=== PATIENT | female | born 1945 | race Caucasian/White ===

== ENCOUNTER 2019-09-23 16:19 | Emergency (ER) | payer BC, MEDICARE ==
[2019-09-23] MEDS ORDERED: Adacel (T-DAP) 0.5 ML SYRINGE ONE (16:51)
== END 2019-09-23 17:07 | disposition home or self-care (01) ==
LOC: ERS 16:19
DX: S61.432A Puncture wound without foreign body of left hand, initial encounter (principal); I10 Essential (primary) hypertension; E78.00 Pure hypercholesterolemia, unspecified; W45.8XXA Other foreign body or object entering through skin, initial encounter
CPT/HCPCS: 90471; 90715

== ENCOUNTER 2020-08-25 08:53 | Outpatient (CLI) | payer MEDICARE, OTHER ==
[2020-08-25] MEDS ORDERED: Magnevist 469MG/ML 20 ML VIAL ONE (11:49)
== END 2020-08-25 08:54 | disposition home or self-care (01) ==
LOC: BICMRI 08:53
PROVIDERS: ATTEND Internal Medicine
DX: R79.89 Other specified abnormal findings of blood chemistry (principal); K86.2 Cyst of pancreas; D35.02 Benign neoplasm of left adrenal gland; N28.1 Cyst of kidney, acquired; K57.10 Diverticulosis of small intestine without perforation or abscess without bleeding; K86.89 Other specified diseases of pancreas
CPT/HCPCS: 74183; 82565; A9579

== ENCOUNTER 2022-10-01 13:06 | Outpatient (CLI) | payer MEDICARE, OTHER | END 2022-10-01 13:07 | disposition home or self-care (01) | LOC: BICMAMMO 13:06 | PROVIDERS: ATTEND Family Medicine | DX: Z12.31 Encounter for screening mammogram for malignant neoplasm of breast (principal) | CPT/HCPCS: 77063; 77067 ==

== ENCOUNTER 2023-01-14 13:52 | Outpatient (CLI) | payer MEDICARE, OTHER | END 2023-01-14 13:53 | disposition home or self-care (01) | LOC: BICMAMMO 13:52 | PROVIDERS: ATTEND Family Medicine | DX: Z13.820 Encounter for screening for osteoporosis (principal); M85.89 Other specified disorders of bone density and structure, multiple sites; Z79.52 Long term (current) use of systemic steroids | CPT/HCPCS: 77080 ==

== ENCOUNTER 2023-03-30 10:12 | Emergency (ER) | payer MEDICARE, OTHER ==
[2023-03-30 10:56] LABS: #Monocytes 0.8 thou/uL (0.11-0.59); #Neutrophils 7.9 thou/uL (1.40-6.50); %Basophils 0.2 % (0.0-1.0); %Eosinophils 0.4 % (0.0-10.0); %Lymphocytes 5.8 % (21.0-51.0); %Monocytes 8.7 % (0.0-10.0); %Neutrophils 84.2 % (42.0-75.0); Hematocrit 29.3 % (36.0-47.0); Hemoglobin 9.8 g/dL (12.0-16.0); Mean Corpuscular HGB CONC 33.4 g/dL (32.0-36.0); Mean Corpuscular Hemoglobin 31.3 pg (27.0-31.0); Mean Corpuscular Volume 93.6 fl (78.0-98.0); Mean Platelet Volume 9.4 fL (7.4-10.4); Platelet Count 266 10x3/uL (130-400); RBC Distribution Width 13.4 % (11.5-14.5); Red Blood Cell (RBC) Count 3.13 mill/uL (4.20-5.40); White Blood Cell (WBC) Count 9.3 10x3/uL (4.8-10.8)
[2023-03-30 11:12] LABS: ALT (SGPT) 12 U/L (8-55); AST (SGOT) 22 U/L (5-34); Albumin 3.4 g/dL (3.4-4.8); Alkaline Phosphatase 101 U/L (40-110); Anion Gap 13 mmol/L (10-20); BUN (Urea Nitrogen) 9 mg/dL (9.8-20.1); Bilirubin, Total 1.2 mg/dL (0.2-1.2); Calc. Creatinine Clearance 0 mL/min (70-130); Calcium 8.1 mg/dL (7.8-10.44); Carbon Dioxide 25 mmol/L (23-31); Chloride 99 mmol/L (98-107); Estimated GFR 68; Globulin 2.7 g/dL (2.4-3.5); Glucose 111 mg/dL (83-110); Potassium 3.3 mmol/L (3.5-5.1); Protein, Total 6.1 g/dL (5.8-8.1); Sodium 134 mmol/L (136-145)
[2023-03-30] MEDS ORDERED: Iopamidol-370 76% 500 ML MDV (1 ML CHARGE) ONE (14:05)
[2023-03-30] MEDS ORDERED: Sodium Chloride 0.9% 100 ML ONE (15:14)
[2023-03-30] MEDS ORDERED: Piperacillin/Tazobactam 3.375 GM VIAL ONE (15:15)
[2023-03-30] MEDS ORDERED: Vancomycin (BATCH) 1.5 GM in Premix 1 BAG IVPB SCH (15:15)
== END 2023-03-30 16:43 | disposition short-term general hospital (02) ==
LOC: ERS 10:12
DX: N73.9 Female pelvic inflammatory disease, unspecified (principal); I10 Essential (primary) hypertension
CPT/HCPCS: 74177; 76857; 80053; 85025; 86850; 86900; 86901; J3370; 36415; 96365; 96367; J2543; J3490; Q9967